=== PATIENT | female | born 1970 | race Caucasian/White ===

== ENCOUNTER 2024-07-08 06:22 | Day surgery (SDC) | payer BC, SELFPAY ==
[2024-07-08 08:30] LABS: Glucose - Point of Care 90 mg/dl (70-99)
== END 2024-07-08 10:59 | disposition home or self-care (01) ==
LOC: GI 06:22
PROVIDERS: ATTENDING PHYSICIAN Internal Medicine Gastroenterology
DX: K20.0 Eosinophilic esophagitis (principal); R12 Heartburn; K22.2 Esophageal obstruction
CPT/HCPCS: 43239; 88305; 82962

== ENCOUNTER → 2024-08-25 10:09 | Outpatient (REF) | payer BC, SELFPAY | LOC: RAD 10:09 | PROVIDERS: ATTENDING PHYSICIAN Internal Medicine Gastroenterology; FAMILY PHYSICIAN Family Medicine | DX: I77.1 Stricture of artery (principal) | CPT/HCPCS: 71260; Q9967 ==